=== PATIENT | male | born 1995 | race Caucasian/White ===

== ENCOUNTER 2020-01-29 19:49 | Emergency (ER) | payer OTHER ==
[~2020-01-29] VITALS: Ht 188 cm; Wt 90.6 kg
[2020-01-29 19:50] VITALS: BP 147/73
[2020-01-29] MEDS ORDERED: LIDOCAINE 1% MDV 20ML VIAL SC ONE (20:15)
[2020-01-29] MEDS ORDERED: NEOSPORIN OINT 0.9 GM PKT TOP ONE (20:30)
== END 2020-01-29 20:39 | disposition home or self-care (01) ==
LOC: M ED 19:49
DX: S81.011A Laceration without foreign body, right knee, initial encounter (principal); W25.XXXA Contact with sharp glass, initial encounter; Y92.009 Unspecified place in unspecified non-institutional (private) residence as the place of occurrence of the external cause; Y93.89 Activity, other specified; Y99.8 Other external cause status